=== PATIENT | female | born 1980 | race Caucasian/White ===

== ENCOUNTER 2022-07-09 02:23 | Outpatient (CLI) | payer MEDICAID, SELFPAY ==
--- NOTE | 2022-07-09 07:15 | DI.MRI_ITS ---
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 TECHNIQUE: Multiplanar multisequence MRA of the brain was performed. COMPARISON: None. FINDINGS: Carotid Arteries: No aneurysm, occlusion or significant stenosis. Anterior Cerebral Arteries: Right: No aneurysm, occlusion or significant stenosis. Left: No aneurysm, occlusion or significant stenosis. Middle Cerebral Arteries: Right: No aneurysm, occlusion or significant stenosis. Left: No aneurysm, occlusion or significant stenosis. 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 This is a normal variant. Right: No aneurysm, occlusion or significant stenosis. Left: No aneurysm, occlusion or significant stenosis. Vertebral Arteries: Right: No aneurysm, occlusion or significant stenosis. Left: No aneurysm, occlusion or significant stenosis. Basilar Artery: No aneurysm, occlusion or significant stenosis. Sinuses: There is a small amount of fluid seen in the right mastoid air cells. The remaining visuali zed paranasal sinuses are clear. Brain: Limited images of the brain are unremarkable. IMPRESSION: No evidence of occlusion or significant stenosis on the MR angiography of the brain. DATA REPOSITORY:
== END 2022-07-09 02:43 ==
PROVIDERS: PCP Nurse Practitioner Family; Visit Provider Otolaryngology
DX: H71.21 Cholesteatoma of mastoid, right ear (principal); H93.A1 Pulsatile tinnitus, right ear
CPT/HCPCS: 70544